=== PATIENT | male | born 1950 | race Caucasian/White ===

== ENCOUNTER 2016-10-25 09:30 | Inpatient (IN) | payer OTHER ==
[2016-10-25] MEDS ORDERED: ceFAZolin 1,000 MG in DEXTROSE/WATER 1 50ML.BAG IVPB STA (12:35)
[2016-10-25] MEDS ORDERED: SODIUM CHLORIDE 0.9% 1,000 ML IV ONE (12:50)
[2016-10-25] MEDS ORDERED: diphenhydrAMINE 50 MG/ML 1 ML VIAL IVP ONE (12:59)
[2016-10-25] MEDS ORDERED: LIDOCAINE 2% INJ 20 MG/ML SQ ONE (13:00)
[2016-10-25] MEDS ORDERED: SODIUM CHLORIDE 0.9% 250 ML IV ONE (13:20)
[2016-10-25] MEDS ORDERED: fentaNYL (PF) 50 MCG/ML 2 ML AMP IV ONE (13:20)
[2016-10-25] MEDS ORDERED: BIVALIRUDIN BOLUS 250 MG/50 ML IV ONE (13:22)
[2016-10-25] MEDS ORDERED: BIVALIRUDIN 250 MG in SODIUM CHLORIDE 0.9% 50 ML IV ONE (13:23)
[2016-10-25] MEDS ORDERED: NITROGLYCERIN 1000MCG/10ML SYRINGE INTRACORON ONE (13:26)
[2016-10-25] MEDS ORDERED: PRASUGREL 10 MG TAB PO ONE (13:32)
[2016-10-25] MEDS ORDERED: IOHEXOL 350 MG/ML 125ML BOTTLE INJ ONE (13:37)
[2016-10-25] MEDS ORDERED: RX INFO: IV CONTRAST WAS GIVEN 1 EACH MISC MISCELLANE PRN ×2 (13:38→22:42)
[2016-10-25] MEDS ORDERED: MAG HYDROX/AL HYDROX/SIMETH 30 ML CUP PO PRN (13:38)
[2016-10-25] MEDS ORDERED: ATROPINE SULFATE 0.1 MG/ML 10ML SYRINGE IV PRN (13:38)
[2016-10-25] MEDS ORDERED: NITROGLYCERIN SL TABS 0.4 MG TAB SUBLINGUAL PRN (13:38)
--- NOTE | 2016-10-25 17:39 | P.CONS ---
History of Present Illness - Reason for Consult Consult date: 10/25/16 daughter has factor V Requesting physician: Margo Padron - Chief Complaint S/P PCTA with stent - History of Present Illness Pt is a very peasant man who had PCTA with stent placement today with Dr. Rao , he is feeling fine post procedure, trying to eat his dinner. We have been asked to see the pt as his daughter has factor V leiden with 3 miscarriages and currently is on lovenox hoping to carry this to term. Pt himself has no history of clots, he denies any major surgical procedures other then a broken back in which he was braced for 3 months, no complications from that time of partial immobility. Pt is feeling well and wants to eat his dinner and go home. Review of Systems All systems: negative Constitutional: Reports as per HPI Past Medical History - Past Family History Daughter(s) Family Medical History: Blood Disorder (favtor V leiden) Medications and Allergies Home Medications Medication Instructions Recorded Confirmed Type Aspirin EC [Ecotrin Low Dose] 81 mg PO DAILY 10/25/16 10/25/16 History Carvedilol [Coreg] 6.25 mg PO BID 10/25/16 10/25/16 History [place]-3 Fatty Acids/Fish Oil [Fish 1 cap PO DAILY 10/25/16 10/25/16 History Oil 1,000 mg Softgel] Allergies Allergy/AdvReac Type Severity Reaction Status Date / Time iodine Allergy Anaphylaxis Verified 10/25/16 16:49 shellfish derived [Shellfish] Allergy Anaphylaxis Verified 10/25/16 16:49 Sulfa (Sulfonamide Allergy Rash/Hives Verified 10/25/16 16:49 Antibiotics) Physical Exam Vitals: Vital Signs Temp Pulse Resp BP BP Pulse Ox 10/25/16 14:10 58 L 16 156/95 10/25/16 13:55 48 L 16 168/88 100 10/25/16 12:33 98.3 F 50 L 16 152/74 166/80 100 Intake and Output 10/25/16 10/25/16 10/25/16 06:59 14:59 22:59 Intake Total 228.3 Output Total 400 Balance -171.7 Intake: IV 228.3 Output: Urine 400 Other: Weight 92.533 kg Patient Weight 10/26/16 06:59 Weight 92.533 kg - Constitutional General appearance: average body habitus, cooperative, no acute distress - EENT Eyes: anicteric sclerae - Respiratory Respiratory: bilateral: CTA - Cardiovascular Rhythm: regular Heart sounds: normal: S1, S2 Abnormal Heart Sounds: systolic murmur leg Peripheral Edema: bilateral: None - Gastrointestinal General gastrointestinal: normal bowel sounds, soft - Integumentary Integumentary: normal - Neurologic Neurologic: CNII-XII intact - Musculoskeletal Musculoskeletal: strength equal bilaterally - Psychiatric Psychiatric: A&O x's 3, appropriate affect, intact judgment & insight Assessment and Plan (1) Family history of factor V Leiden mutation Narrative/Plan: Pt has no personal history of clotting. His procedure today is not going to incapacitate him in fact he hopes to get around better. Pt will be on aspirin and effient post procedure. It is not felt that anticoagulation therapy post this procedure is necessary. Pt was asking about lab testing and was informed that the hypercoaguable work up is done out patient due to many of the tests taking up to 2 weeks to result. Pt can see Dr. Cordova in the outpatient setting if he chooses for work up. Status: Suspected
[2016-10-25] MEDS: CARVEDILOL 6.25 MG TAB PO SCH (17:49)
[2016-10-25] MEDS: SODIUM CHLORIDE 0.9% 1,000 ML IV SCH ×2 (17:49→20:56)
--- NOTE | 2016-10-25 19:01 | CONS ---
DATE OF CONSULTATION: 10/25/2016. REASON FOR CONSULTATION: Chest pain. HISTORY OF PRESENT ILLNESS: Mr. Vito Billingsley is a 66-year-old male who was seen, evaluated, examined on selective care. This patient was recently admitted to the [facility] with left arm pain predominantly with some chest tightness though. Patient was evaluated with a spiral CT, preliminary report was negative for pulmonary embolism. However due to problems associated with risk factors, patient was eventually transferred to [facility] for cardiac catheter and angiogram, which was performed today, found to have stenosis in coronary artery and underwent stent placement. Patient currently stable. Denies any chest pain or shortness of breath. Some soreness in the chest and arm is present though. Past medical history is significant for hypertension. ALLERGIES: IODINE, SULFA. Current medications in the hospital include: 1. Ambien 5 mg daily. 2. Effient 10 mg daily. 3. Nitrostat as needed. 4. Zestril 10 mg daily. 5. Pepcid 20 mg daily. 6. Coreg 6.25-2 times a day. 7. Also on Lipitor 80 mg daily. 8. Aspirin daily 325 mg daily. On examination, blood pressure 152/95, respiratory rate of 16, pulse 58, temperature 98, saturation 100%. HEENT: Atraumatic, normocephalic. Pharynx clear. Narrow pharyngeal opening is present. NECK: Supple without lymphadenopathy, jugular venous distention or carotid bruit. LUNGS: Bilateral good air entry is present without significant rales, rhonchi, or rub. HEART: Regular rate, rhythm. S1 and S2 audible. ABDOMEN: Soft. No rebound or rigidity. EXTREMITIES: +1 peripheral pulses. NEUROLOGICAL EXAMINATION: Otherwise, awake and alert. IMPRESSION: 1. Unstable angina with coronary artery disease, status post stent placement. 2. History of hypertension, hypertensive cardiovascular disease. PLAN AND RECOMMENDATION: Optimize therapy for coronary care, dyslipidemia and pain management. Continue supportive care. Continue gentle hydration and follow up on renal function and continue anticoagulation for the stent. Overall plan is to continue supportive care. We will follow-up in outpatient setting for further COPD evaluation. We will obtain CT scan report from [facility] and review it. Further recommendations pending.
[2016-10-25] MEDS: ATORVASTATIN 80 MG TAB PO SCH (20:52)
[2016-10-25] MEDS ORDERED: FAMOTIDINE 20 MG TAB PO PRN (21:00)
[2016-10-25] MEDS ORDERED: ZOLPIDEM 5 MG TAB PO PRN (21:00)
[2016-10-26] MEDS ORDERED: FAMOTIDINE 20 MG/2 ML VIAL IV ONE (00:04)
[2016-10-26] MEDS ORDERED: methylPREDNISolone SOD SUCCI 125 MG/2 ML VIAL IV ONE (00:04)
[2016-10-26] MEDS ORDERED: diphenhydrAMINE 50 MG/ML 1 ML VIAL IVP ONE (00:04)
[2016-10-26] MEDS: CARVEDILOL 6.25 MG TAB PO SCH ×2 (06:54→16:43)
[2016-10-26 07:01] LABS: Basophils % (A) 0 %; CH 31.1; CHCM 33.6; Eosinophils # (A) 0.1 k/uL (0-0.7); Eosinophils % (A) 0 %; HCT 36.1 % (39.0-53.0); HDW 2.41; HGB 12.1 gm/dL (13.0-17.5); Luc # (Auto) 0.05; Luc % (Auto) 0; Lymphocytes # (A) 0.8 k/uL (1.0-4.8); Lymphocytes % (A) 6 %; MCH 31.2 pg (25.0-35.0); MCHC 33.6 g/dL (31.0-37.0); Mean Platelet Volume 7.4; Monocytes # (A) 0.4 k/uL (0-1.0); Monocytes % (A) 3 %; Neutrophils # (A) 12.8 k/uL (1.3-7.7); Neutrophils % (A) 91 %; RBC 3.88 m/uL (4.30-5.90); RDW 13.8 % (11.5-15.5); WBC 14.2 k/uL (3.8-10.6); WBC (Perox) 14.65
[2016-10-26 07:39] LABS: Anion Gap 6 mmol/L; Blood Urea Nitrogen 24 mg/dL (9-20); Calcium 8.3 mg/dL (8.4-10.2); Carbon Dioxide 21 mmol/L (22-30); Chloride 112 mmol/L (98-107); Cholesterol 170 mg/dL (<200); Glucose 143 mg/dL (74-99); HDL Cholesterol 46 mg/dL (40-60); Non-African American GFR(MDRD) >60 (>60 ml/min/1.73 sqM); Potassium 4.6 mmol/L (3.5-5.1); Sodium 139 mmol/L (137-145); Triglycerides 45 mg/dL (<150)
[2016-10-26] MEDS: SODIUM CHLORIDE 0.9% 1,000 ML IV SCH ×3 (07:44→21:52)
--- NOTE | 2016-10-26 08:13 | HP ---
DATE OF ADMISSION: CHIEF COMPLAINT: A 66-year-old white male transferred from [facility] for a non-STEMI. He had an acute non-STEMI with acute LAD lesion, which underwent angioplasty today. He came to the hospital with chest pain, shortness of breath, found to have troponins from 2 jumping up to 9 to 16. He went on to have cardiac catheterization, found to have proximal LAD lesion. Sent over to [facility] for angioplasty today. He is doing better post angioplasty. At this time, having no chest pain or shortness of breath. Risk factor modification explained to the patient including quitting smoking. Allergies are to IODINE, SHELLFISH, SULFA. Active medicines include: 1. Aspirin. 2. Lipitor 80. 3. Coreg 6.25 b.i.d. 4. Pepcid 20 daily. 5. Zestril 10 daily. 6. Nitrostat sublingual. 7. Effient 10 mg daily. 8. Ambien 5 q.h.s. for sleep. SURGICAL HISTORY: Negative. FAMILY HISTORY: Negative except for some heart disease. PHYSICAL EXAM: Temperature 97.4, blood pressure 120s to 130s over 60s. O2 is 95% to 96% on room air. CARDIOVASCULAR: S1, S2. LUNGS: Transmitted upper airway sounds. GI: Soft. HEMATOLOGIC: Negative Homans. PSYCH: Fair mood and affect. OPHTHALMOLOGIC: Pupils equal, round and react to light and accommodation. NEUROLOGIC: Alert and oriented x3. ASSESSMENT: A 66-year-old with [id number] elevation myocardial infarction, status post LAD angioplasty. Risk factor modification of blood thinners. Hypertensive. Cholesterol medicines are readjusted. He will possibly be discharged on 10/26 or 10/27/2016 depending on his postop course.
[2016-10-26] MEDS: ASPIRIN 325 MG TAB PO SCH (08:38)
[2016-10-26] MEDS: LISINOPRIL 10 MG TAB PO SCH (08:38)
[2016-10-26] MEDS: PRASUGREL 10 MG TAB PO SCH (08:38)
--- NOTE | 2016-10-26 10:44 | CT ---
EXAMINATION TYPE: CT chest angio for PE DATE OF EXAM: 10/26/2016 8:27 AM COMPARISON: NONE HISTORY: 66-year-old male with chest pain, possible pulmonary embolus, history of clotting disorder TECHNIQUE: Contiguous axial scanning of the chest performed with IV Contrast, patient injected with 1 00 mL of Omnipaque 350. Coronal/sagittal MIP reconstructions performed. CT DLP: 605 mGycm Automated exposure control for dose reduction was used. FINDINGS: Heart is borderline enlarged. Coronary vessel calcifications are present and are remarkable for coron javier artery disease. Ectasia of the upper descending thoracic aorta at 3.1 cm. There is conventional) she anatomy. Possibl e sternal 1.3 cm nodule posterior right lower lobe thyroid gland, axial image extending. Satisfactory opacification of the pulmonary system. The central main pulmonary arteries are borderlin e in size at 2.5 cm each. No evidence for pulmonary embolus. No flattening of the interventricular se ptum. There is minimal reflux of contrast into the IVC. Numerous small prevascular space lymph nodes are present measuring up to 6 mm short axis. Left trache obronchial angle lymph node measures 8 mm and a high right paratracheal lymph node measures up to 7 m m. No thoracic lymphadenopathy by CT size criteria. There may be subtle centrilobular nodules seen throughout the upper to mid lungs. There is some depen dent atelectasis and mild diffuse bronchial wall thickening. Some focal opacity posterior right basilar opacity probably represents atelectasis. No pleural effusi on. Tiny hiatal hernia partially visualized left kidney shows a large 4.4 cm cyst. Calcification superior spleen probably a calcified granuloma. Bones: Multilevel endplate spondylosis and degenerative disc disease especially in the mid to lower t horacic spine. No osseous destructive process. 1.4 cm skin and subcutaneous lesion along the midline upper back probably sebaceous cyst. IMPRESSION: 1. POSSIBLE UNDERLYING PULMONARY ARTERIAL HYPERTENSION. NO EVIDENCE FOR PULMONARY EMBOLUS. 2. MILD DIFFUSE BRONCHIAL WALL THICKENING CAN BE SEEN WITH BRONCHITIS OR CHRONIC ASTHMA. THERE IS SUG GESTION OF SOME SUBTLE CENTRILOBULAR NODULES IN THE UPPER TO MID LUNGS. IF THE PATIENT IS A SMOKER, T HIS COULD REFLECT UNDERLYING RESPIRATORY BRONCHIOLITIS. 3. SOME FOCAL PATCHY RIGHT BASILAR ATELECTASIS OR INFILTRATE. 4. NUMEROUS SMALL MEDIASTINAL LYMPH NODES ESPECIALLY IN THE PREVASCULAR SPACE. RECOMMEND 3 MONTH FOLL OW-UP EXAM TO ENSURE STABILITY/RESOLUTION AND EXCLUDE AN AGGRESSIVE ETIOLOGIES. 5. A 1.4 CM SKIN AND SUBCUTANEOUS LESION ALONG THE MIDLINE UPPER BACK PROBABLY REPRESENTS A SEBACEOUS CYST; CORRELATE WITH PHYSICAL EXAM FINDINGS.
--- NOTE | 2016-10-26 11:26 | P.PN ---
Subjective This is a 66-year-old male patient who is being evaluated and examined today on selective care unit. This patient was recently admitted to [facility] with left arm pain predominantly with some chest tightness. The patient was evaluated with a spiral CT and was negative for pulmonary embolism. However due to problems associated with risk factors patient was eventually transferred to [facility] for a cardiac catheterization and angiogram which was performed yesterday. Patient was found to have stenosis in the coronary artery and underwent stent placement. Patient currently stable denies any chest pain or shortness of breath he still has some soreness in his arm no. Upon examination the patient is resting up in bed on room air denies any cough congestion or sputum production. Patient states his appetite is good and has had good urine output. Patient underwent a CTA this morning and results were reviewed. Objective - Vital Signs Vital signs: Vital Signs Temp 98.1 F 10/26/16 08:00 Pulse 55 L 10/26/16 09:53 Resp 18 10/26/16 08:00 BP 142/65 10/26/16 09:53 Pulse Ox 98 10/26/16 09:53 Intake & Output 10/25/16 10/26/16 10/26/16 18:59 06:59 18:59 Intake Total 228.3 1125 480 Output Total 400 350 Balance -171.7 775 480 Weight 92.533 kg 92.8 kg Intake: IV 228.3 1125 Sodium Chloride 0.9% 1, 1125 000 ml @ 125 mls/hr IV . Q8H [facility] Rx#:[id number] Oral 480 Output: Urine 400 350 Other: Voiding Method Toilet Toilet # Voids 1 - Exam GENERAL EXAM: Alert, active, comfortable in no apparent distress. HEAD: Normocephalic. EYES: Normal reaction of pupils, equal size. NOSE: Clear with pink turbinates. THROAT: No erythema or exudates. Narrow oropharyngeal opening is present NECK: No masses, no JVD. CHEST: No chest wall deformity. LUNGS: Equal air entry with no crackles, wheeze, rhonchi or dullness. CVS: S1 and S2 normal with no audible mumurs, regular rhythm. ABDOMEN: No hepatosplenomegaly, normal bowel sounds, no guarding or rigidity. EXTREMITIES: No edema noted, pedal pulses palpable. SKIN: No rashes CENTRAL NERVOUS SYSTEM: No focal deficits, tone is normal in all 4 extremities. - Labs CBC & Chem 7: 10/26/16 06:49 10/26/16 06:49 Labs: Abnormal Lab Results - Last 24 Hours (Table) 10/26/16 10/26/16 Range/Units 06:49 06:49 WBC 14.2 H (3.8-10.6) k/uL RBC 3.88 L (4.30-5.90) m/uL Hgb 12.1 L (13.0-17.5) gm/dL Hct 36.1 L (39.0-53.0) % Neutrophils # 12.8 H (1.3-7.7) k/uL Lymphocytes # 0.8 L (1.0-4.8) k/uL Chloride 112 H (98-107) mmol/L Carbon Dioxide 21 L (22-30) mmol/L BUN 24 H (9-20) mg/dL Glucose 143 H (74-99) mg/dL Calcium 8.3 L (8.4-10.2) mg/dL LDL Cholesterol, Calc 115 H (0-99) mg/dL Assessment and Plan Plan: Assessment Unstable angina with coronary artery disease status post stent placement Hypertension hypertensive cardiovascular disease Dyslipidemia Family history of factor V Leiden mutation Plan Medications have been reviewed and will be continued as ordered. Continue with pulmonary hygiene, coughing and deep breathing exercises, and supportive care. Supplemental oxygen to maintain oxygen saturations of 92% or better. Continue nebulizer treatments. GI and DVT prophylaxis. Cardiology recommendations appreciated . We will continue to monitor labs/results and adjust treatment as necessary. Further recommendations pending. I performed an examination of the patient and discussed their management with the nurse practitioner. I have reviewed the nurse practitioner's note and agree with the documented findings and plan of care.
--- NOTE | 2016-10-26 11:45 | P.PN ---
Subjective 66-year-old seen and examined this morning. Patient was transferred from [facility] after patient had developed left arm pain left chest tightness. Patient did undergo heart catheterization by cardiology service with a drug-eluting stent placed on the patient's currently being followed by cardiology and pulmonary. Patient did undergo a CAT scan of the chest which was negative for evidence of a pulmonary emboli did note hematology oncology did see the patient. The request for the consultation was the daughter has a factor V leiden patient himself has no history of clots. Patient has no major surgical procedures in the past. Patient currently is on aspirin and effient. The hypercoagulable workup can be done in an outpatient setting Objective - Vital Signs Vital signs: Vital Signs Temp 98.1 F 10/26/16 08:00 Pulse 55 L 10/26/16 09:53 Resp 18 10/26/16 08:00 BP 142/65 10/26/16 09:53 Pulse Ox 98 10/26/16 09:53 Intake & Output 10/25/16 10/26/16 10/26/16 18:59 06:59 18:59 Intake Total 228.3 1125 480 Output Total 400 350 Balance -171.7 775 480 Weight 92.533 kg 92.8 kg Intake: IV 228.3 1125 Sodium Chloride 0.9% 1, 1125 000 ml @ 125 mls/hr IV . Q8H [facility] LICENSE OF [facility] Rx#:[id number] Oral 480 Output: Urine 400 350 Other: Voiding Method Toilet Toilet # Voids 1 - Exam Physical exam 66-year-old male resting in bed does not appear in any acute distress Lungs essentially clear adequate air movement Heart S1-S2 audible and regular Abdomen soft nontender Extremities no edema noted - Labs CBC & Chem 7: 10/26/16 06:49 10/26/16 06:49 Labs: Abnormal Lab Results - Last 24 Hours (Table) 10/26/16 10/26/16 Range/Units 06:49 06:49 WBC 14.2 H (3.8-10.6) k/uL RBC 3.88 L (4.30-5.90) m/uL Hgb 12.1 L (13.0-17.5) gm/dL Hct 36.1 L (39.0-53.0) % Neutrophils # 12.8 H (1.3-7.7) k/uL Lymphocytes # 0.8 L (1.0-4.8) k/uL Chloride 112 H (98-107) mmol/L Carbon Dioxide 21 L (22-30) mmol/L BUN 24 H (9-20) mg/dL Glucose 143 H (74-99) mg/dL Calcium 8.3 L (8.4-10.2) mg/dL LDL Cholesterol, Calc 115 H (0-99) mg/dL Assessment and Plan Plan: Impression Present on admission chest pain status post heart catheterization drug-eluting stent to the affected coronary Family history of factor V leiden mutation Dyslipidemia Hypertension hypertensive cardiovascular disease Plan Continue current recommendations by cardiology service defer to Hematology oncology indicates the hyperechoic a bowel workup can be done in an outpatient basis once patient's discharge and appointment will be made Continue with the current recommendations by pulmonology Titrate the O2 to keep sats greater than 90% Continue aspirin and effient Further recommendations pending The timing of the discharge defer to cardiology service when stable The above dictated assessment and findings were discussed with dr selby Impression and the plan of care have been dictated as directed. Naina Hobson nurse practitioner acting as a scribe for dr selby
--- NOTE | 2016-10-26 12:55 | PN ---
Mr. Billingsley was transferred from [facility]. He was admitted with an acute anterior wall infarct and he underwent coronary stenting to the LAD yesterday. He is doing well today. He is chest pain free. His vitals are stable. He has no shortness of breath. No orthopnea or PND. His heart rates are in the 50s. Blood pressure 130/61 and 142/65 mmHg . Respirations are normal. Heart sounds S1 and S2 normal. No murmurs or no gallops. Breath sounds are normal. No rhonchi. No crackles. Extremities are warm. No edema. IMPRESSION: 1. Anterior wall infarct. 2. Status post coronary stenting with a drug-eluting stent. 3. Family history of pulmonary emboli and Dr. Cordova has been consulted for medical evaluation for this. He underwent a CT of the chest today but no pulmonary embolism was noted. SUGGEST: Continue dual antiplatelet therapy. Continue statins. Continue cardiac medications. Likely discharge in the next 48 hours.
--- NOTE | 2016-10-26 14:58 | P.PN ---
Subjective Principal diagnosis: family history of factor V leiden mutation, post PTCA and stent, anticoagulation recommendations Pt seen today in follow up, he feels well, denies any bleeding or unrealistic bruising, swelling in legs or arms , no SOB or NITIN Objective - Vital Signs Vital signs: Vital Signs Temp 98.1 F 10/26/16 08:00 Pulse 52 L 10/26/16 11:52 Resp 16 10/26/16 11:52 BP 132/72 10/26/16 11:51 Pulse Ox 98 10/26/16 09:53 Intake & Output 10/25/16 10/26/16 10/26/16 18:59 06:59 18:59 Intake Total 228.3 1125 720 Output Total 400 350 Balance -171.7 775 720 Weight 92.533 kg 92.8 kg 92.8 kg Intake: IV 228.3 1125 Sodium Chloride 0.9% 1, 1125 000 ml @ 125 mls/hr IV . Q8H REPLACED [facility] Rx#:[id number] Oral 720 Output: Urine 400 350 Other: Voiding Method Toilet Toilet # Voids 1 - Constitutional General appearance: Present: average body habitus, cooperative, no acute distress - Respiratory Details: sitting up in bed with unlabored respirations, speech is unlabored - Peripheral edema leg Peripheral Edema: bilateral: None - Integumentary Integumentary: Present: normal - Neurologic Neurologic: Present: CNII-XII intact - Musculoskeletal Musculoskeletal: Present: strength equal bilaterally - Psychiatric Psychiatric: Present: A&O x's 3, appropriate affect, intact judgment & insight - Labs CBC & Chem 7: 10/26/16 06:49 10/26/16 06:49 Labs: Abnormal Lab Results - Last 24 Hours (Table) 10/26/16 10/26/16 Range/Units 06:49 06:49 WBC 14.2 H (3.8-10.6) k/uL RBC 3.88 L (4.30-5.90) m/uL Hgb 12.1 L (13.0-17.5) gm/dL Hct 36.1 L (39.0-53.0) % Neutrophils # 12.8 H (1.3-7.7) k/uL Lymphocytes # 0.8 L (1.0-4.8) k/uL Chloride 112 H (98-107) mmol/L Carbon Dioxide 21 L (22-30) mmol/L BUN 24 H (9-20) mg/dL Glucose 143 H (74-99) mg/dL Calcium 8.3 L (8.4-10.2) mg/dL LDL Cholesterol, Calc 115 H (0-99) mg/dL Assessment and Plan (1) Family history of factor V Leiden mutation Narrative/Plan: Pt provided with contact information for Dr. Cordova if anyone in the family would like to have hypercoaguable work. Case was reviewed in detail with Dr. Cordova and the recommendation remains no anticoagulation post this procedure is necessary. Pt to follow Cardiology instructions and remain on anti-platelet agents as prescribed. Status: Suspected
[2016-10-26] MEDS: ATORVASTATIN 80 MG TAB PO SCH (21:53)
[2016-10-27 06:23] VITALS: RESP 18
[2016-10-27] MEDS: PRASUGREL 10 MG TAB PO SCH (09:06)
[2016-10-27] MEDS: ASPIRIN 325 MG TAB PO SCH (09:06)
--- NOTE | 2016-10-27 09:54 | ECHOF ---
Referral Reason:ami MEASUREMENTS -------- HEIGHT: 180.3 cm WEIGHT: 92.5 kg BP: 130/61 RVIDd: 3.0 cm (< 3.3) IVSd: 1.2 cm (0.6 - 1.1) LVIDd: 5.7 cm (3.9 - 5.3) LVPWd: 1.4 cm (0.6 - 1.1) IVSs: 2.2 cm LVIDs: 3.2 cm LVPWs: 2.1 cm LAESV Index (A-L): 26.35 ml/m Ao Diam: 3.6 cm (2.0 - 3.7) AV Cusp: 1.7 cm (1.5 - 2.6) LA Diam: 4.0 cm (2.7 - 3.8) MV EXCURSION: 16.659 mm (> 18.000) MV EF SLOPE: 77 mm/s (70 - 150) EPSS: 0.6 cm MV E Esteban: 1.01 m/s MV DecT: 331 ms MV A Esteban: 0.96 m/s MV E/A Ratio: 1.05 AV maxP.32 mmHg AV meanP.57 mmHg AR PHT: 644 ms RAP: 5.00 mmHg RVSP: 18.15 mmHg FINDINGS -------- Sinus rhythm. This was a technically good study. There is mild concentric left ventricular hypertrophy. Overall left ventricular systolic function is normal with, an EF between 60 - 65 %. The right ventricle is normal in size and function. Normal LA size by volume 22+/-6 ml/m2. The right atrium is normal in size. There is mild aortic regurgitation. Mild aortic stenosis with peak/mean pressure gradient of 31.32mmHg / 14.57mmHg , the aortic valve area by continuity equation is 1.4cm. The mitral valve leaflets are mildly thickened. There is trace to mild mitral regurgitation. No regurgitation noted There is no evidence of pulmonary hypertension. The right ventricular systolic pressure, as measured by Doppler, is 18.15mmHg. The pulmonic valve was not well visualized. The aortic root size is normal. The inferior vena cava is dilated with no significant inspiratory collapse which is consistent estimated right atrial pressure of >20 mmHg. There is no pericardial effusion. CONCLUSIONS -------- 1. Sinus rhythm. 2. There is no evidence of pulmonary hypertension. 3. The right ventricular systolic pressure, as measured by Doppler, is 18.15mmHg. 4. The pulmonic valve was not well visualized. 5. The aortic root size is normal. 6. The inferior vena cava is dilated with no significant inspiratory collapse which is consistent estimated right atrial pressure of >20 mmHg. 7. There is no pericardial effusion. 8. There is mild concentric left ventricular hypertrophy. 9. Overall left ventricular systolic function is normal with, an EF between 60 - 65 %. 10. Normal LA size by volume 22+/-6 ml/m2. 11. There is mild aortic regurgitation. 12. Mild aortic stenosis with peak/mean pressure gradient of 31.32mmHg / 14.57mmHg , the aortic valve area by continuity equation is 1.4cm. 13. The mitral valve leaflets are mildly thickened. 14. There is trace to mild mitral regurgitation. 15. No regurgitation noted [employer]: Joseph Ash RDCS
[2016-10-27] MEDS: LISINOPRIL 10 MG TAB PO SCH (11:42)
[2016-10-27] MEDS: CARVEDILOL 6.25 MG TAB PO SCH (11:42)
--- NOTE | 2016-10-27 12:36 | P.PN ---
Subjective Principal diagnosis: Coronary artery disease, status post stenting Patient seen and examined covering for Dr. Monsalve. The patient states his breathing has been fine. He is hoping to go home soon. The patient is currently on room air. He denies dyspnea on exertion. Objective - Vital Signs Vital signs: Vital Signs Temp 97.3 F L 10/27/16 08:00 Pulse 49 L 10/27/16 11:43 Resp 18 10/27/16 04:00 BP 119/76 10/27/16 11:43 Pulse Ox 98 10/27/16 08:00 Intake & Output 10/26/16 10/27/16 10/27/16 18:59 06:59 18:59 Intake Total 720 380 Balance 720 380 Weight 92.8 kg 94.1 kg Intake: IV 200 Sodium Chloride 0.9% 1, 200 000 ml @ 125 mls/hr IV . Q8H JOSEPH Rx#:[id number] Oral 720 180 Other: Voiding Method Toilet Toilet # Voids 1 3 - Exam Gen.: Patient is alert and oriented 3, no acute distress Lungs: Clear to auscultation bilaterally no wheezes rales or rhonchi Abdomen: Soft nontender nondistended positive bowel sounds next Cardiovascular: Regular rate and rhythm, S1/S2 Extremities: No edema - Labs CBC & Chem 7: 10/26/16 06:49 10/26/16 06:49 Assessment and Plan Plan: Unstable angina with coronary artery disease status post stent placement Hypertension hypertensive cardiovascular disease Dyslipidemia Family history of factor V Leiden mutation Plan Medications have been reviewed and will be continued as ordered. Continue with pulmonary hygiene, coughing and deep breathing exercises, and supportive care. Supplemental oxygen to maintain oxygen saturations of 92% or better. Continue nebulizer treatments. GI and DVT prophylaxis. Respiratory status is stable. We will sign off and re-evaluate at your request.
--- NOTE | 2016-10-27 14:47 | P.PN ---
Subjective This is a pleasant 66-year-old gentleman who was transferred from [facility]. He was admitted with an acute anterior wall infarct and he underwent coronary stenting to the LAD on 10/25/2016. He is doing well. He is chest pain -free. His heart rates have been low in the 40s. He is asymptomatic with this. He has not been up walking much but when he has been he denies complaints of chest discomfort or shortness of breath. Objective - Vital Signs Vital signs: Vital Signs Temp 97.3 F L 10/27/16 08:00 Pulse 49 L 10/27/16 11:43 Resp 18 10/27/16 04:00 BP 119/76 10/27/16 11:43 Pulse Ox 98 10/27/16 08:00 Intake & Output 10/26/16 10/27/16 10/27/16 18:59 06:59 18:59 Intake Total 720 480 Balance 720 480 Weight 92.8 kg 94.1 kg Intake: IV 200 Sodium Chloride 0.9% 1, 200 000 ml @ 125 mls/hr IV . Q8H ON LICENSE OF [facility] Rx#:[id number] Oral 720 280 Other: Voiding Method Toilet Toilet # Voids 1 3 - Exam PHYSICAL EXAMINATION: HEENT: Head is atraumatic, normocephalic. Pupils equal, round. Neck is supple. There is no elevated jugular venous pressure. HEART EXAMINATION: Heart sounds regular, S1 and S2 normal. No murmur or gallop heard. CHEST EXAMINATION: Lungs are clear to auscultation and precussion. No chest wall tenderness is noted on palpation or with deep breathing. ABDOMEN: Soft, nontender. Bowel sounds are heard. No organomegaly noted. EXTREMITIES: 2+ peripheral pulses with no evidence of peripheral edema and no calf tenderness noted. Right groin soft without evidence of hematoma. NEUROLOGIC patient is awake, alert and oriented x3. . - Labs CBC & Chem 7: 10/26/16 06:49 10/26/16 06:49 Assessment and Plan Plan: Assessment and plan #1 anterior wall infarct #2 status post coronary stenting of the LAD with a drug-eluting stent #3 family history of pulmonary emboli, CTA of the chest was negative for PE, Dr. Cordova has been consult it. Continue dual antiplatelet therapy. Continue statins. Due to cardiac on current dose of carvedilol we will decreased to 3.125 mg by mouth twice a day. Monitor the patient. Increase activity up walking in the halls. Likely discharge in the next 24 hours. BONER MEAT note has been reviewed, I agree with a documented findings and plan of care. Patient was seen and examined.
[2016-10-27] MEDS: CARVEDILOL 3.125 MG TAB PO SCH (17:41)
--- NOTE | 2016-10-27 20:39 | PN ---
SUBJECTIVE: This is a 66-year-old white male, status post LAD angioplasty. CAT scan of the chest was reviewed with the patient showing nonspecific pulmonary nodules. His work-up as an outpatient 3 months. Repeat CAT scan was informed. The patient's 's was informed. He is status post acute anterior wall infarct. He is now chest pain free. His heart rate in the low 100s, asymptomatic, pulse is 49, temp 97.3, blood pressure 119/76, O2 is 98% CARDIOVASCULAR: S1, S2. No murmurs, rubs, or gallops. CHEST: Clear. ABDOMEN: Soft. EXTREMITIES: Normal pulses. No hematoma in the groin. NEUROLOGIC: PSYCHIATRIC: Fair mood and affect. White count 14.2, hemoglobin 12.1, BUN 24, creatinine 1.06. ASSESSMENT: 1. Anterior wall infarct, status post coronary artery stenting left anterior descending artery with a drug-eluting stent. 2. Family history of pulmonary emboli. The patient CT of the chest is negative. 3. Awaiting factor V Leiden blood test that was done at the other hospital. Continue on aspirin and continue platelets, statins, cut down his Carvedilol due to bradycardia, probably discharge home tomorrow. Repeat CAT scan in 3 months with his primary care physician.
[2016-10-27] MEDS: ATORVASTATIN 80 MG TAB PO SCH (21:28)
[2016-10-28 06:44] LABS: Basophils % (A) 0 %; CH 30.9; CHCM 32.8; Eosinophils # (A) 0.1 k/uL (0-0.7); Eosinophils % (A) 1 %; HCT 34.6 % (39.0-53.0); HDW 2.33; HGB 11.4 gm/dL (13.0-17.5); Luc # (Auto) 0.14; Luc % (Auto) 2; Lymphocytes % (A) 21 %; MCH 31.2 pg (25.0-35.0); MCHC 32.9 g/dL (31.0-37.0); MCV 94.8 fL (80.0-100.0); Mean Platelet Volume 7.6; Monocytes # (A) 0.8 k/uL (0-1.0); Monocytes % (A) 9 %; Neutrophils # (A) 6.4 k/uL (1.3-7.7); Neutrophils % (A) 68 %; RBC 3.65 m/uL (4.30-5.90); RDW 14.2 % (11.5-15.5); WBC 9.5 k/uL (3.8-10.6); WBC (Perox) 9.62
[2016-10-28 07:09] LABS: ALT 180 U/L (21-72); AST 111 U/L (17-59); Alkaline Phosphatase 113 U/L (38-126); Anion Gap 6 mmol/L; Blood Urea Nitrogen 18 mg/dL (9-20); Calcium 8.1 mg/dL (8.4-10.2); Carbon Dioxide 24 mmol/L (22-30); Chloride 110 mmol/L (98-107); Glucose 86 mg/dL (74-99); Non-African American GFR(MDRD) >60 (>60 ml/min/1.73 sqM); Potassium 4.3 mmol/L (3.5-5.1); Sodium 140 mmol/L (137-145); Total Bilirubin 0.7 mg/dL (0.2-1.3)
[2016-10-28] MEDS: CARVEDILOL 3.125 MG TAB PO SCH (07:22)
[2016-10-28] MEDS: ASPIRIN 325 MG TAB PO SCH (09:18)
[2016-10-28] MEDS: LISINOPRIL 10 MG TAB PO SCH (09:18)
[2016-10-28] MEDS: PRASUGREL 10 MG TAB PO SCH (09:18)
[2016-10-28 11:05] VITALS: TEMP 98.7
--- NOTE | 2016-10-28 12:27 | DS ---
DATE OF ADMISSION: 10/25/2016 DATE OF DISCHARGE: 10/28/2016 DISCHARGE MEDICATIONS: 1. Aspirin 325 mg daily. 2. Lipitor 80 mg daily. 3. Coreg 3.125 b.i.d. 4. Pepcid 20 mg p.r.n. 5. Zestril 10 mg daily. 6. Nitrostat 0.4 mg sublingual p.r.n. 7. Effient 10 mg daily. CONDITION: Stable. PROGNOSIS: Guarded. Ambulate as tolerated. HOSPITAL COURSE OF EVENTS: White male who was admitted with acute anterior CO. Pat underwent angioplasty of LAD lesion. The patient is having no chest pain or shortness of breath. No nausea, dizziness, syncope. No nausea, vomiting. Patient was stabilized and discharged for follow up as an outpatient with [facility] in a week. Lift and work restrictions per Cardiology. Smoking cessation counseling given. Patient failed Chantix before. He does not want nicotine patch at this time and thinks he can do it on his own. Other risk factor modifications discussed with patient. He also has abnormal CT scan of his chest showed shotty lymphadenopathy and will need repeat CAT scan in 3 months per radiology recommendations. He states his primary care physician will order this in 3 months.
[2016-10-28 12:34] VITALS: BP 117/68; PULSE 46
[2016-10-28] MEDS ORDERED: NITROGLYCERIN SL TABS 0.4 MG TAB SUBLINGUAL PRN (12:46)
--- NOTE | 2016-10-28 13:30 | PN ---
Mr. Billingsley is a 66-year-old male patient who had an anterior wall myocardial infarction, status post stenting. I delayed his discharge yesterday because he was bradycardic and his blood pressure is low and I backed off Coreg to 3.125 mg twice daily. He had no chest wall. No dizziness, lightheadedness. Heart rate still remains in the 40s and 50s, but he is asymptomatic. Head and neck examination is normal. Heart sounds there is a soft systolic murmur audible but he is not short of breath. Breath sounds are normal. Abdomen is soft. Extremities are warm. No edema. IMPRESSION: 1. Coronary artery disease, status post anterior wall myocardial infarction, status post coronary stenting. 2. Sinus bradycardia. PLAN: Discharge home on dual antiplatelet therapy, Coreg, ZACK inhibitors and statins, atorvastatin 80 mg q.h.s. He will see Dr. Norma Rao in the next 7 to 10 days.
[2016-10-28] MEDS ORDERED: ATORVASTATIN 80 MG TAB PO SCH (21:00)
[2016-10-29] MEDS ORDERED: NON-FORMULARY DRUG (Omega-3 Fatty Acids/Fish Oil [Fish Oil 1,000 Mg Softgel] 1 CAP) PO SCH (09:00)
[2016-10-29] MEDS ORDERED: PRASUGREL 10 MG TAB PO SCH (09:00)
[2016-10-29] MEDS ORDERED: LISINOPRIL 10 MG TAB PO SCH (09:00)
--- NOTE | 2016-11-22 21:45 | PTCA ---
DATE OF SERVICE: CLINICAL INFORMATION: Patient underwent cardiac catheterization for non-Q wave myocardial infarction found to have 85% lesion in the LAD that was stented. Patient's cath was done at [facility]. Patient clinical information: Patient admitted to the hospital with myocardial infarction at [facility] and transferred to [facility], underwent angioplasty stenting of the LAD. Patient is under local anesthesia for about 45 minutes sedation. PROCEDURE: Under local anesthesia, right femoral sheath is exchanged of the another sheath with sterile precautions. Prophylactic antibiotics were given and proceeded with angioplasty using a 6 Frisian left coronary guide, obtained Eigen shots of the LAD, proximal LAD lesion was found, advanced a Whisper J-wire into the distal LAD and placed a Xience stent 3.5, 15 mm deployed at 14 atmospheres with excellent angiographic results. Patient has received Angiomax bolus and infusion followed by 60 mg Effient. Patient tolerated the procedure very well. There were no complications during or after completion of the procedure. ASSESSMENT: Successful dilatation of the 85% proximal LAD lesion reduced to 0% residual stenosis with good angiographic results.
== END 2016-10-28 13:56 | disposition home or self-care (01) | DRG 247 ==
LOC: 6SEL 12:30
PROVIDERS: ADMIT Family Medicine; ATTEND Family Medicine
PROC: 027034Z Dilation of Coronary Artery, One Artery with Drug-eluting Intraluminal Device, Percutaneous Approach (ICD-10-PCS; principal; 2016-10-25 12:45)
DX: I21.4 Non-ST elevation (NSTEMI) myocardial infarction (principal); D68.51 Activated protein C resistance; I11.9 Hypertensive heart disease without heart failure; I25.110 Atherosclerotic heart disease of native coronary artery with unstable angina pectoris; E78.5 Hyperlipidemia, unspecified; Z79.82 Long term (current) use of aspirin; Z79.02 Long term (current) use of antithrombotics/antiplatelets; Z79.899 Other long term (current) drug therapy; Z88.2 Allergy status to sulfonamides; Z91.041 Radiographic dye allergy status; Z91.013 Allergy to seafood
CPT/HCPCS: 71275; 80048; 80053; 80061; 85025; 93306; 94760

== ENCOUNTER → 2018-02-03 | Outpatient (CLI) | payer OTHER ==
--- NOTE | 2018-02-03 15:01 | CT ---
EXAMINATION TYPE: CT chest wo con DATE OF EXAM: 02/03/2018 COMPARISON: 10/26/2016 HISTORY: 67-year-old male follow-up Lymphadenopathy TECHNIQUE: Contiguous axial scanning of the chest without IV contrast. Coronal and sagittal reconstru ctions performed. CT DLP: 392.7 mGycm Automated exposure control for dose reduction was used. FINDINGS: Heart normal size without pericardial effusion. Coronary vessel calcifications are present. Mildly ectatic upper descending thoracic aorta 3.1 cm. Conventional branching anatomy. Redemonstrated numerous nonenlarged mediastinal lymph nodes particularly in the prevascular space yolanda suring up to 7 mm. 8 mm right paratracheal lymph node is minimally larger versus 7 mm, previously. AP window lymph node minimally larger at 7 mm versus 6 mm, previously. No new lymphadenopathy is identi fied. Borderline to mildly enlarged caliber to the main right and left pulmonary arteries at 2.8 and 2.5 cm , respectively, suggests underlying pulmonary arterial hypertension. Mild emphysematous changes in the upper lungs. No consolidation or pleural effusion. Strandy atelecta sis is inferior lingula. Previous focal opacity at the posterior right lower lobe has resolved. Small hiatal hernia. Calcified granuloma in the spleen. Partially visualized hypodense lesion left ki dney measuring 4.6 cm suggestive of a cyst. Bones: Multilevel degenerative disc disease especially mid to lower thoracic spine. Accentuated lower thoracic kyphosis. IMPRESSION: 1. NUMEROUS NONENLARGED MEDIASTINAL LYMPH NODES ESPECIALLY IN THE PREVASCULAR SPACE. A COUPLE LYMPH N ODES ARE A MILLIMETER LARGER, MEASURING UP TO 8 MM. OVERALL, NOT SIGNIFICANTLY CHANGED OVER THE COURS E OF 1 YEAR AND 3 MONTHS. FINDINGS SUGGEST A REACTIVE OR POSTINFLAMMATORY ETIOLOGY. 2. COPD WITH VERY MILD EMPHYSEMA AND SUSPECTED UNDERLYING PULMONARY ARTERIAL HYPERTENSION.
== END | disposition home or self-care (01) ==
LOC: RADCTMAIN 11:57
PROVIDERS: ATTEND Pediatrics
DX: J43.9 Emphysema, unspecified (principal); R59.1 Generalized enlarged lymph nodes
CPT/HCPCS: 71250

== ENCOUNTER → 2024-06-23 | Outpatient (CLI) | payer MEDICARE ==
--- NOTE | 2024-06-23 07:33 | MR ---
EXAMINATION TYPE: MR Prostate wo/w con DATE OF EXAM: 06/23/2024 7:17 AM COMPARISON: None. CLINICAL INDICATION: Male, 74 years old with history of R97.20 elevated PSA; Elevated PSA. TECHNIQUE: Multi-planar, multi-sequence imaging of the pelvis is performed prior to and following the uncomplicated administration of bolus intravenous gadolinium. IV Contrast: 9ML mL Gadobutrol Interpretive Criteria: PI-RADS v2.1 SERUM PSA: 05-21-24 = 11.4 05-20-23 = 7.7 SURGICAL PATHOLOGY: No data available. FINDINGS: Prostatic dimensions: 4.1 x 3.4 x 3.1 cm. "Bullet" Volume: 28.28 (PSA density=0.40 ng/mL/mL) CENTRAL GLAND (Central and Transition Zones/CZ+TZ): High DWI and low ADC/low T2 signal lesion right anterior mid gland/base measuring 2.4 x 1.5 cm and ma y cross midline ever so slightly on axial T2 imaging series 701 image 17 up to 7 mm of possible exten adrian. There is postcontrast enhancement within this region. (PI-RADS 5) PERIPHERAL ZONE (PZ): High DWI and low ADC/low T2 signal lesion left posterior lateral peripheral gland mid gland/base maik uring 1.5 cm. (PI-RADS 5) Additional area in the right posterior lateral peripheral gland of high low ADC low T2 signal in inco nspicuous DWI signal noted measuring 11 mm (PI-RADS 4) These areas demonstrate postcontrast enhancement. SEMINAL VESICLES (SV): Symmetric and unremarkable. PERIPROSTATIC TISSUES: Unremarkable. LYMPH NODES: No enlarged pelvic lymph node. REMAINING PELVIS: Bladder wall is within normal limits given distention. No abnormal free or organized intrapelvic fluid collection. No pathologic bowel dilation or mural thickening. Colonic diverticula are present. Bilateral fat containing inguinal hernias. Large probable renal cysts noted. OSSEOUS STRUCTURES: No suspicious osseous abnormality. IMPRESSION: 1. Bilateral PI-RADS 5 lesions concerning for clinically significant prostate adenocarcinoma. The lar gest right anterior central gland mid gland/base measuring up to 2.4 cm which compresses midline, paul ateral posterior lateral peripheral zone lesions also present PI-RADS 5 left and PI-RADS 4 right. 3. No suspicious osseous lesion. No lymphadenopathy. No evidence of prostate adenocarcinoma involving the periprostatic tissues. [facility], , 06/23/2024 7:31 AM
== END | disposition home or self-care (01) ==
LOC: RADMRIMAIN 05:50
PROVIDERS: ATTEND Urology
DX: R97.20 Elevated prostate specific antigen [PSA] (principal); I10 Essential (primary) hypertension; J44.9 Chronic obstructive pulmonary disease, unspecified; E78.5 Hyperlipidemia, unspecified
CPT/HCPCS: 72197; A9585

== ENCOUNTER 2024-08-06 12:05 | Day surgery (SDC) | payer MEDICARE ==
--- NOTE | 2024-08-02 19:57 | P.GSHP ---
History of Present Illness H&P Date: 08/02/24 Chief Complaint: Elevated PSA level The patient is a 74-year-old white male recently found to have an elevated PSA level of 11.4, up from 7.7 in late 2022. He has no family history of prostate cancer. Digital rectal examination revealed the prostate to be moderately enlarged, firm but smooth. Prostate MRI revealed a prostate volume of 28.28 cc, with bilateral PI-RADS 5 lesions. He now comes for MRI fusion biopsies of the prostate. - Cardiovascular Cardiovascular: Reports high blood pressure - Genitourinary (Male) Genitourinary: Reports urinary frequency Past Medical History Past Medical History: Hypertension, Pneumonia Additional Past Medical History / Comment(s): 10-25-16 nstemi past fall-broke disc in back -was braced for 3 months, rbbb,arthritis in hands History of Any Multi-Drug Resistant Organisms: None Reported Past Surgical History: Heart Catheterization Additional Past Surgical History / Comment(s): 10-25-16 heart cath w/stent to lad, Past Anesthesia/Blood Transfusion Reactions: Motion Sickness Past Psychological History: No Psychological Hx Reported Additional Psychological History / Comment(s): PT IS INDEPENDANT. LIVES IN A 2 STORY HOME THAT HAS 2 STEPS TO GET INTO HOME. NO OUTSIDE SERVICES, NO MEDICAL EQUIPMENT. NO SERVICE. WORKS FOR [employer]. Past Alcohol Use History: Rare Additional Past Alcohol Use History / Comment(s): STARTED SMOKING AT AGE 18, 1PPD Past Drug Use History: None Reported - Past Family History Daughter(s) Family Medical History: Blood Disorder Additional Family Medical History / Comment(s): FACTOR V LEIDEN, 3 MISCARRIAGES Mother Family Medical History: Diabetes Mellitus Additional Family Medical History / Comment(s): DIET CONTROLLED DIABETIC Father Additional Family Medical History / Comment(s): PACEMAKER Medications and Allergies Home Medications Medication Instructions Recorded Confirmed Type Aspirin EC [Ecotrin Low Dose] 325 mg PO DAILY 10/25/16 10/28/16 History [place]-3 Fatty Acids/Fish Oil [Fish 1 cap PO DAILY 10/25/16 10/25/16 History Oil 1,000 mg Softgel] carvediloL [Coreg] 3.125 mg PO BID 10/25/16 10/28/16 History Atorvastatin [Lipitor] 80 mg PO HS 10/28/16 10/28/16 History Nitroglycerin Sl Tabs [Nitrostat] 1 tab PO DIRECTED PRN 10/28/16 10/28/16 History Prasugrel [Effient] 10 mg PO DAILY 10/28/16 10/28/16 History lisinopriL [Zestril] 10 mg PO DAILY 10/28/16 10/28/16 History Allergies Allergy/AdvReac Type Severity Reaction Status Date / Time iodine Allergy Anaphylaxis Verified 10/25/16 16:49 shellfish derived [Shellfish] Allergy Anaphylaxis Verified 10/25/16 16:49 Sulfa (Sulfonamide Allergy Rash/Hives Verified 10/25/16 16:49 Antibiotics) Surgical - Exam - General well developed, well nourished, no distress - Respiratory normal respiratory effort - Genitourinary normal penis with no external lesions, testicles non-tender - Rectum Rectum: normal sphincter tone, no masses, other (Prostate moderately enlarged, firm but smooth) - Psychiatric oriented to time, oriented to person, oriented to place, speech is normal, memory intact Assessment and Plan (1) Elevated prostate specific antigen [PSA] Status: Acute Code(s): R97.20 - ELEVATED PROSTATE SPECIFIC ANTIGEN [PSA] SNOMED Code(s): 234270910 Plan: The patient will undergo MRI-Ultrasound fusion transrectal biopsies of the prostate. The procedure has been reviewed in detail with the patient. He has been made aware of potential risks, which include anesthesia, bleeding, and infection. He is also aware that a negative biopsy does not completely rule out prostate cancer.
[2024-08-03 13:10] VITALS: BMI 31.5
[~2024-08-06 12:05] MED LIST: LACTATED RINGERS 1,000 ML IV SCH; LIDOCAINE 1% (10MG/ML) FOR IV START INTRADERMA PRN
[2024-08-06] MEDS: IV FLUID CONTINUATION 1,000 ML IV ONE (13:52)
[2024-08-06] MEDS: GENTAMICIN 40 MG/ML 2 ML VIAL IM PRN (14:12)
[2024-08-06] MEDS: DEXAMETHASONE SOD PHOSPHATE 4 MG/ML 1 ML VIAL IV ONE (14:15)
[2024-08-06] MEDS: ONDANSETRON 4 MG/2 ML VIAL IVP ONE (14:15)
[2024-08-06 14:20] VITALS: RESP 16; TEMP 98.1
[2024-08-06] MEDS ORDERED: LIDOCAINE 1% INJ 10MG/ML (20 ML MDV) ONE (15:41)
[2024-08-06] MEDS ORDERED: fentaNYL (PF) 50 MCG/ML 2 ML AMP ONE (15:41)
[2024-08-06] MEDS ORDERED: PROPOFOL 10 MG/ML 20 ML VIAL IV ONE (15:41)
[2024-08-06] MEDS ORDERED: MIDAZOLAM 2 MG/2 ML VIAL ONE (15:41)
--- NOTE | 2024-08-06 16:09 | P.OP ---
Date of Procedure: 08/06/24 Preoperative Diagnosis: Elevated PSA level Postoperative Diagnosis: Same Procedure(s) Performed: MRI fusion biopsies of the prostate Anesthesia: MAC Surgeon: Armen Hernadez Estimated Blood Loss (ml): 5 IV fluids (ml): 400 Pathology: other (Prostate biopsies) Condition: stable Disposition: PACU Indications for Procedure: The patient is a 74-year-old white male recently found to have an elevated PSA level of 11.4, up from 7.7 in late 2022. He has no family history of prostate cancer. Digital rectal examination revealed the prostate to be moderately enlarged, firm but smooth. Prostate MRI revealed a prostate volume of 28.28 cc, with bilateral PI-RADS 5 lesions. He now comes for MRI fusion biopsies of the prostate. Operative Findings: Biopsies obtained from 3 suspicious lesions. Description of Procedure: The patient was taken to the operating room and placed in the left lateral decubitus position. ADRIAN revealed the prostate to be mildly enlarged but smooth. The [place] [employer] transrectal ultrasound probe was placed intrarectally. It was then placed within the stand of the [employer] MRI/TRUS Fusion for Prostate Biopsy system. The prostate was imaged in both the axial and sagittal planes, revea ling a prostate volume of 31 mL. Using the Biopty gun, 2-3 biopsies were obtained from each of 3 target lesions. The remaining 10 biopsies of the peripheral zone were obtained utilizing a standard template. Once the procedure was completed, the ultrasound probe was removed. The patient tolerated the procedure well was taken to the recovery room stable condition.
[2024-08-06 16:58] VITALS: PULSE 53
[2024-08-06 17:00] VITALS: BP 141/69
== END 2024-08-06 17:00 | disposition home or self-care (01) ==
LOC: OR 12:05
PROVIDERS: ATTEND Urology
DX: C61 Malignant neoplasm of prostate (principal); N40.1 Benign prostatic hyperplasia with lower urinary tract symptoms; R97.20 Elevated prostate specific antigen [PSA]; R35.0 Frequency of micturition; I25.10 Atherosclerotic heart disease of native coronary artery without angina pectoris; I10 Essential (primary) hypertension; E78.5 Hyperlipidemia, unspecified; M54.50 Low back pain, unspecified; Z87.891 Personal history of nicotine dependence; Z83.3 Family history of diabetes mellitus; Z88.8 Allergy status to other drugs, medicaments and biological substances; Z88.2 Allergy status to sulfonamides; Z88.1 Allergy status to other antibiotic agents; Z79.02 Long term (current) use of antithrombotics/antiplatelets; Z79.82 Long term (current) use of aspirin; Z79.899 Other long term (current) drug therapy
CPT/HCPCS: 55700; 88342; 88305; 88341; J2250; J1580; J1100; J2405; J2003; J3010; J2704

== ENCOUNTER → 2024-09-10 | Outpatient (CLI) | payer MEDICARE ==
--- NOTE | 2024-09-11 08:03 | PE ---
EXAMINATION TYPE: PET CT fusion skull to thigh DATE OF EXAM: 09/10/2024 COMPARISON: Prostate MRI June 23, 2024 HISTORY: C61 PROSTATE CANCER TECHNIQUE: Following the intravenous administration of 6.8 mCi of Ga-68 Illucix, whole body images a re performed from the top of skull to the midthigh. Images are reviewed on the computer in the coron al, axial, and sagittal planes. Reconstructed rotating images are created on independent workstation and reviewed on the computer. A localization and attenuation correction CT is performed in conjunc tion with the PET scan. SCAN: Initial Scan FINDINGS: HEAD AND NECK: No areas of suspicious uptake. CHEST, MEDIASTINUM, AND HILAR REGION: No areas of suspicious uptake. ABDOMEN AND PELVIS: Corresponding to prostate MRI there are areas of increased uptake in the right an d left aspects of the prostate gland. For reference there is uptake in the anterior right apex corres ponding to ADC image 68. No areas of abnormal suspicious uptake outside the prostate gland are identi fied in the remainder of the abdomen or pelvis. OSSEOUS STRUCTURES: No areas of suspicious uptake. OTHER CT: Moderate calcified plaque bilateral carotid bulb level is seen. Asymmetric diminished size to left thyroid lobe is noted. There is mild cardiomegaly with mild to moderate coronary artery calci fication. Prominent pulmonary arteries raise concern for underlying pulmonary artery hypertension. There are thin-walled cysts of varying size and shape scattered throughout both kidneys. Sigmoid colo zaira diverticula are present. There is moderate-sized fat-containing right inguinal hernia. IMPRESSION: Bilateral but localized neoplasm in the prostate gland. No suspicious adenopathy or metas tatic disease seen. [facility], , 09/11/2024 8:01 AM
== END | disposition home or self-care (01) ==
LOC: RADPETMAIN 13:05
PROVIDERS: ATTEND Urology
DX: C61 Malignant neoplasm of prostate (principal); K40.90 Unilateral inguinal hernia, without obstruction or gangrene, not specified as recurrent; N28.1 Cyst of kidney, acquired
CPT/HCPCS: 78815; A9596